=== PATIENT | female | born 1985 | race Two or more races ===

== ENCOUNTER → 2017-08-17 | Outpatient (CLI) | payer OTHER | END | disposition home or self-care (01) | LOC: RX STUDY 10:51 | DX: R10.2 Pelvic and perineal pain (principal); N80.2 Endometriosis of fallopian tube ==

== ENCOUNTER 2021-08-19 09:07 | Outpatient (CLI) | payer OTHER | END 2021-08-19 09:13 | disposition home or self-care (01) | LOC: RAD 09:07 | PROVIDERS: ATTEND Obstetrics & Gynecology Gynecology | DX: N91.2 Amenorrhea, unspecified (principal) ==

== ENCOUNTER 2022-07-19 09:14 | Outpatient (CLI) | payer OTHER | END 2022-07-19 11:15 | disposition home or self-care (01) | LOC: PRENATAL 09:14 | PROVIDERS: ATTEND Obstetrics & Gynecology Maternal & Fetal Medicine | DX: O35.9XX0 Maternal care for (suspected) fetal abnormality and damage, unspecified, not applicable or unspecified (principal); O34.219 Maternal care for unspecified type scar from previous cesarean delivery; O35.3XX0 Maternal care for (suspected) damage to fetus from viral disease in mother, not applicable or unspecified; O09.529 Supervision of elderly multigravida, unspecified trimester; Z3A.20 20 weeks gestation of pregnancy ==

== ENCOUNTER 2022-10-13 09:16 | Outpatient (CLI) | payer OTHER | END 2022-10-13 10:45 | disposition home or self-care (01) | LOC: PRENATAL 09:16 | PROVIDERS: ATTEND Obstetrics & Gynecology Maternal & Fetal Medicine | DX: O26.849 Uterine size-date discrepancy, unspecified trimester (principal); O36.8199 Decreased fetal movements, unspecified trimester, other fetus; O09.529 Supervision of elderly multigravida, unspecified trimester; O34.219 Maternal care for unspecified type scar from previous cesarean delivery; O28.1 Abnormal biochemical finding on antenatal screening of mother; Z3A.32 32 weeks gestation of pregnancy ==

== ENCOUNTER 2025-01-02 10:30 | Inpatient (IN) | payer OTHER ==
[~2025-01-02] VITALS: Ht 30.5 cm; Wt 57.6 kg
[2025-01-08] MEDS ORDERED: LIDOCAINE HCL 1%/EPINEPHRINE 20ML VIAL IJ ONE (08:15)
[2025-01-08] MEDS ORDERED: BUPIVACAINE HCL/MPF 0.5% 30ML VIAL ONE (08:15)
[2025-01-08] MEDS ORDERED: VISTASEAL DUAL APPICATOR 1 EACH APPL TOP ONE (08:35)
[2025-01-08] MEDS ORDERED: THROMBIN,HU/FIBRINOGEN/CALCIUM 10 ML SYRINGE TOP ONE (08:35)
[2025-01-08] MEDS ORDERED: CHLORHEXIDINE GLUCONATE 120 ML BOTTLE TOP ONE (09:45)
[2025-01-08] MEDS ORDERED: METRONIDAZOLE/SODIUM CHLORIDE 500 MG/100 ML PIGGYBACK IV SCH (09:45)
[2025-01-08] MEDS ORDERED: POVIDONE-IODINE 118 ML BOTT TOP ONE (09:45)
[2025-01-08] MEDS ORDERED: CEFTRIAXONE SODIUM 2,000 MG VIAL IV SCH (09:45)
[2025-01-08] MEDS ORDERED: IOVERSOL 320 MG/ML - 50 ML VIAL IV ONE (11:21)
[2025-01-08] MEDS ORDERED: SUGAMMADEX SODIUM 200 MG/2 ML VIAL IV ONE (13:12)
[2025-01-08] MEDS ORDERED: RINGERS SOLUTION,LACTATED 1,000 ML IV SCH (14:15)
[2025-01-08] MEDS ORDERED: OxyCODONE HCL 5 MG TABLET (ROXICODONE) PO PRN (14:15)
[2025-01-08] MEDS ORDERED: MORPHINE SULFATE 4 MG/ML CARTRIDGE IV PRN (14:15)
[2025-01-08] MEDS ORDERED: ONDANSETRON HCL 2 MG/ML VIAL IV PRN (14:15)
[2025-01-08 15:42] LABS: BASO % 0.1 % (0.1-1.2); EOS # 0.00 (0.04-0.54); EOS % 0.0 % (0.7-7.0); LYMPH # 0.99 (1.18-3.74); LYMPH % 5.0 % (19.3-53.1); MEAN PLATELET VOLUME 11.80 fl (9.4-12.4); MONO # 1.36 (0.24-0.82); MONO % 6.8 % (4.7-12.5); NEUT # 17.39 (1.56-6.13); NEUT % 87.6 % (34.0-71.1); RED CELL DISTRIBUTION WIDTH 13.1 % (11.6-14.4)
[2025-01-08] MEDS ORDERED: METOCLOPRAMIDE HCL 5 MG/ML VIAL ONE (16:39)
[2025-01-08] MEDS ORDERED: HYOSCYAMINE SULFATE 0.125 MG TAB.SUBL ONE (16:39)
[2025-01-08] MEDS ORDERED: GABAPENTIN 300 MG CAPSULE PO ONE (16:40)
[2025-01-08] MEDS ORDERED: SIMETHICONE 125 MG CAPSULE PO ONE (16:40)
[2025-01-08] MEDS ORDERED: GABAPENTIN 300 MG CAPSULE PO SCH (17:00)
[2025-01-08] MEDS ORDERED: HYOSCYAMINE SULFATE 0.125 MG TAB.SUBL SL SCH (17:00)
[2025-01-08] MEDS ORDERED: SIMETHICONE 125 MG CAPSULE PO SCH (17:00)
[2025-01-08] MEDS ORDERED: METOCLOPRAMIDE HCL 5 MG/ML VIAL IV SCH (17:00)
[2025-01-08 17:21] VITALS: BP 118/75
[2025-01-08] MEDS ORDERED: ACETAMINOPHEN 500 MG GEL..CAP PO SCH (20:00)
[2025-01-08 20:46] VITALS: BP 123/74
[2025-01-08] MEDS ORDERED: FAMOTIDINE/PF 20 MG/2 ML VIAL IV PUSH SCH (21:00)
[2025-01-08] MEDS ORDERED: CELECOXIB 200 MG CAPSULE PO SCH (21:00)
[2025-01-08 21:17] LABS: BASO % 0.2 % (0.1-1.2); EOS # 0.00 (0.04-0.54); EOS % 0.0 % (0.7-7.0); LYMPH # 0.39 (1.18-3.74); LYMPH % 2.1 % (19.3-53.1); MEAN PLATELET VOLUME 11.80 fl (9.4-12.4); MONO # 0.80 (0.24-0.82); MONO % 4.3 % (4.7-12.5); NEUT # 17.41 (1.56-6.13); NEUT % 93.0 % (34.0-71.1); RED CELL DISTRIBUTION WIDTH 12.9 % (11.6-14.4)
[2025-01-09 00:42] VITALS: BP 100/62
[2025-01-09 06:19] LABS: BASO % 0.1 % (0.1-1.2); EOS # 0.00 (0.04-0.54); EOS % 0.0 % (0.7-7.0); LYMPH # 1.12 (1.18-3.74); LYMPH % 7.0 % (19.3-53.1); MEAN PLATELET VOLUME 12.20 fl (9.4-12.4); MONO # 1.50 (0.24-0.82); MONO % 9.4 % (4.7-12.5); NEUT # 13.23 (1.56-6.13); NEUT % 83.2 % (34.0-71.1); RED CELL DISTRIBUTION WIDTH 13.1 % (11.6-14.4)
[2025-01-09 06:44] LABS: BUN CREA RATIO 8.0 (7.0-25.0); CREATININE SERUM 0.59 mg/dL (0.55-1.02); GFR 114.07; GLUCOSE FASTING 94.0 mg/dL (65-100); OSMOLALITY SERUM 280.0 MOSM/KG (275-295)
[2025-01-09 08:53] VITALS: BP 115/78
[2025-01-09] MEDS ORDERED: LACTOBACILLUS ACIDOPHILUS 1 CAP CAP PO SCH (09:00)
[2025-01-09] MEDS ORDERED: ENOXAPARIN SODIUM 40 MG/0.4 ML SYRINGE SUBCUTANEO SCH (17:00)
[2025-01-09 18:43] VITALS: BP 118/81; O2SAT 99
[2025-01-10 00:42] VITALS: BP 111/71; O2SAT 98
[2025-01-10 04:30] VITALS: BP 107/69
[2025-01-10 06:25] LABS: BASO % 0.3 % (0.1-1.2); EOS # 0.21 (0.04-0.54); EOS % 1.9 % (0.7-7.0); LYMPH # 1.53 (1.18-3.74); LYMPH % 14.0 % (19.3-53.1); MEAN PLATELET VOLUME 11.40 fl (9.4-12.4); MONO # 0.98 (0.24-0.82); MONO % 9.0 % (4.7-12.5); NEUT # 8.14 (1.56-6.13); NEUT % 74.4 % (34.0-71.1); RED CELL DISTRIBUTION WIDTH 13.2 % (11.6-14.4)
[2025-01-10 07:19] LABS: BUN CREA RATIO 13.0 (7.0-25.0); CREATININE SERUM 0.56 mg/dL (0.55-1.02); GFR 121.15; GLUCOSE FASTING 82.0 mg/dL (65-100); OSMOLALITY SERUM 284.0 MOSM/KG (275-295)
[2025-01-10 08:00] VITALS: BP 112/69
[2025-01-10] MEDS ORDERED: AMINOCAPROIC ACID 250 MG/ML VIAL IV STA (08:13)
[2025-01-10] MEDS ORDERED: ENOXAPARIN SODIUM 40 MG/0.4 ML SYRINGE SUBCUTANEO SCH (09:00)
[2025-01-10] MEDS ORDERED: AMINOCAPROIC ACID 250 MG/ML VIAL IV SCH (10:00)
[2025-01-10] MEDS ORDERED: POTASSIUM PHOS,M-BASIC-D-BASIC 3 MM/ML VIAL IV ONE (12:00)
[2025-01-10] MEDS ORDERED: SOD FERRIC GLUC COMPLX/SUCROSE 62.5 MG in 0.9 % SODIUM CHLORIDE 50 ML IV NR (14:00)
[2025-01-10] MEDS ORDERED: Cyanocobalamin/Mecobalamin 1 TAB.SL SL NR (14:00)
[2025-01-10 18:11] VITALS: BP 101/68
[2025-01-11] VITALS: BP 110/75; O2SAT 98
[2025-01-11 05:34] VITALS: BP 108/72
[2025-01-11 08:00] VITALS: BP 111/76
[2025-01-11 08:06] LABS: BASO % 0.4 % (0.1-1.2); EOS # 0.31 (0.04-0.54); EOS % 3.8 % (0.7-7.0); LYMPH # 1.43 (1.18-3.74); LYMPH % 17.6 % (19.3-53.1); MEAN PLATELET VOLUME 11.70 fl (9.4-12.4); MONO # 0.68 (0.24-0.82); MONO % 8.4 % (4.7-12.5); NEUT # 5.65 (1.56-6.13); NEUT % 69.4 % (34.0-71.1); RED CELL DISTRIBUTION WIDTH 13.3 % (11.6-14.4)
[2025-01-11] MEDS ORDERED: Cyanocobalamin/Mecobalamin 1 TAB.SL SL SCH (09:00)
[2025-01-11] MEDS ORDERED: SOD FERRIC GLUC COMPLX/SUCROSE 62.5 MG in 0.9 % SODIUM CHLORIDE 50 ML IV SCH (09:00)
== END 2025-01-11 12:35 | disposition home or self-care (01) | DRG 742 ==
LOC: O/R 01-08 06:00 → OB/GYN 01-08 06:00 → O/R 01-08 09:31 → OB/GYN 01-08 10:30 → SURH 01-08 10:30 → OB/GYN 01-08 15:55
PROVIDERS: Internal Medicine Geriatric Medicine; Obstetrics & Gynecology Gynecology; Surgery; Urology; ADMIT Student in an Organized Health Care Education/Training Program; ATTEND Student in an Organized Health Care Education/Training Program
PROC: 0DTP4ZZ Resection of Rectum, Percutaneous Endoscopic Approach (ICD-10-PCS; 2025-01-08)
PROC: 0TN74ZZ Release Left Ureter, Percutaneous Endoscopic Approach (ICD-10-PCS; 2025-01-08)
PROC: 0TN64ZZ Release Right Ureter, Percutaneous Endoscopic Approach (ICD-10-PCS; 2025-01-08)
PROC: 0DNW4ZZ Release Peritoneum, Percutaneous Endoscopic Approach (ICD-10-PCS; 2025-01-08)
PROC: 0DTJ4ZZ Resection of Appendix, Percutaneous Endoscopic Approach (ICD-10-PCS; 2025-01-08)
PROC: 0DJD8ZZ Inspection of Lower Intestinal Tract, Via Natural or Artificial Opening Endoscopic (ICD-10-PCS; 2025-01-08)
PROC: 0T778DZ Dilation of Left Ureter with Intraluminal Device, Via Natural or Artificial Opening Endoscopic (ICD-10-PCS; 2025-01-08)
PROC: 0TQ74ZZ Repair Left Ureter, Percutaneous Endoscopic Approach (ICD-10-PCS; 2025-01-08)
PROC: 0UT24ZZ Resection of Bilateral Ovaries, Percutaneous Endoscopic Approach (ICD-10-PCS; principal; 2025-01-08 07:00)
PROC: 0UT94ZZ Resection of Uterus, Percutaneous Endoscopic Approach (ICD-10-PCS; 2025-01-08 07:00)
PROC: 0TNB4ZZ Release Bladder, Percutaneous Endoscopic Approach (ICD-10-PCS; 2025-01-08 07:00)
DX: N80.103 Endometriosis of bilateral ovaries, unspecified depth (principal); N99.71 Accidental puncture and laceration of a genitourinary system organ or structure during a genitourinary system procedure; N80.519 Endometriosis of the rectum, unspecified depth; D27.1 Benign neoplasm of left ovary

== ENCOUNTER 2025-01-31 17:16 | Emergency (ER) | payer OTHER ==
[~2025-01-31] VITALS: Ht 154.9 cm; Wt 53.5 kg
--- NOTE | 2025-01-31 17:29 | NUR ---
PACIENTE ALERTA Y ORIENTADA X3 REFIERE TENER ORDEN MEDICA DE DR. HOOK POR SANGRADO VAGINAL. SE HIEN S/V Y SE PASA CON DR. HOOK PARA MEJOR EXAMINACION.
[2025-01-31] MEDS ORDERED: THROMBIN,HU/FIBRINOGEN/CALCIUM 10 ML SYRINGE TOP ONE (17:48)
[2025-01-31] MEDS ORDERED: ONDANSETRON HCL 4 MG in 0.9 % SODIUM CHLORIDE 50 ML IV PRN (18:30)
[2025-01-31] MEDS ORDERED: ACETAMINOPHEN 325 MG TABLET PO PRN (18:30)
[2025-01-31] MEDS ORDERED: KETOROLAC TROMETHAMINE 30 MG VIAL IV PRN (18:30)
[2025-01-31] MEDS ORDERED: ACETAMINOPHEN 500 MG GEL..CAP PO ONE (18:38)
[2025-01-31] MEDS ORDERED: ONDANSETRON HCL 2 MG/ML VIAL ONE (18:38)
[2025-01-31] MEDS ORDERED: KETOROLAC TROMETHAMINE 30 MG VIAL ONE (18:38)
[2025-01-31] MEDS ORDERED: TRANEXAMIC ACID 100MG/1ML (1000MG) AMPUL IV ONE (19:15)
--- NOTE | 2025-01-31 19:15 | NUR ---
PTE EVALUADO POR TOSTE, PRESENTADO MANCHADO VAGINAL, SE REALIZA HIEN DE MUESTRAS DE PATO BAJO MEDIDAS ASEPTICAS Y SE ADMINISTRA MEDICACION JUDY ORDEN MEDICA. CLIENTE ES ORIENTADO SOBRE MEDICACION Y PROCESO DE RE-EVALUACION MEDICA.
[2025-01-31 19:22] LABS: BASO % 0.5 % (0.1-1.2); EOS # 0.14 (0.04-0.54); EOS % 2.5 % (0.7-7.0); LYMPH # 1.90 (1.18-3.74); LYMPH % 34.4 % (19.3-53.1); MEAN PLATELET VOLUME 12.00 fl (9.4-12.4); MONO # 0.59 (0.24-0.82); MONO % 10.7 % (4.7-12.5); NEUT # 2.86 (1.56-6.13); NEUT % 51.7 % (34.0-71.1); RED CELL DISTRIBUTION WIDTH 13.1 % (11.6-14.4)
[2025-01-31] MEDS ORDERED: SIMETHICONE 125 MG CAPSULE PO PRN (19:30)
[2025-01-31 19:43] LABS: ALT/SGPT 19.0 U/L (12-78); AST/SGOT 17.0 U/L (15-37); BILIRUBIN TOTAL 0.34 mg/dL (0.3-1.2); BUN CREA RATIO 15.0 (7.0-25.0); CREATININE SERUM 0.86 mg/dL (0.55-1.02); GFR 73.85; GLOBULINA 4.0 G/DL (2.4-3.5); GLUCOSE FASTING 87.0 mg/dL (65-100); OSMOLALITY SERUM 283.0 MOSM/KG (275-295)
[2025-01-31] MEDS ORDERED: RINGERS SOLUTION,LACTATED 1,000 ML IV SCH (20:30)
[2025-02-01 08:30] VITALS: BP 115/79; O2SAT 99
[2025-02-01 10:20] VITALS: BP 113/76
[2025-02-01] MEDS ORDERED: ACETAMINOPHEN 500 MG GEL..CAP PO PRN (11:00)
[2025-02-12] MEDS ORDERED: METRONIDAZOLE/SODIUM CHLORIDE 500 MG/100 ML PIGGYBACK IV ONE (23:17)
[2025-02-12] MEDS ORDERED: SUGAMMADEX SODIUM 200 MG/2 ML VIAL IV ONE (23:29)
== END 2025-02-01 14:16 | disposition home or self-care (01) ==
LOC: ER 17:16 → EDSTATUS 17:16 → CIR.AMB 17:57 → ER 17:57 → OB/GYN 02-01 06:57 → ER 02-01 06:57 → OB/GYN 02-01 14:16 → EDSTATUS 03-11 17:16
PROVIDERS: General Practice
DX: N93.8 Other specified abnormal uterine and vaginal bleeding (principal); N80.8 Other endometriosis; N94.6 Dysmenorrhea, unspecified

== ENCOUNTER 2025-02-12 21:29 | Inpatient (IN) | payer OTHER ==
[~2025-02-12] VITALS: Ht 154.9 cm; Wt 53.5 kg
--- NOTE | 2025-02-12 21:33 | NUR ---
PTE ALERTA Y ORIENTADA ACOMPANDA DEL DR. HOOK CON SANGRADO VAGINAL.
[2025-02-12 22:01] LABS: BASO % 0.4 % (0.1-1.2); EOS # 0.20 (0.04-0.54); EOS % 3.0 % (0.7-7.0); LYMPH # 3.29 (1.18-3.74); LYMPH % 48.9 % (19.3-53.1); MEAN PLATELET VOLUME 11.50 fl (9.4-12.4); MONO # 0.72 (0.24-0.82); MONO % 10.7 % (4.7-12.5); NEUT # 2.49 (1.56-6.13); NEUT % 37.0 % (34.0-71.1); RED CELL DISTRIBUTION WIDTH 12.7 % (11.6-14.4)
[2025-02-12 22:24] LABS: INR 1.06
[2025-02-12 22:29] LABS: ALT/SGPT 16.0 U/L (12-78); AST/SGOT 13.0 U/L (15-37); BILIRUBIN TOTAL 0.28 mg/dL (0.3-1.2); BUN CREA RATIO 21.0 (7.0-25.0); CREATININE SERUM 0.68 mg/dL (0.55-1.02); GFR 96.83; GLOBULINA 3.4 G/DL (2.4-3.5); GLUCOSE FASTING 99.0 mg/dL (65-100); OSMOLALITY SERUM 285.0 MOSM/KG (275-295)
[2025-02-12] MEDS ORDERED: METRONIDAZOLE/SODIUM CHLORIDE 500 MG/100 ML PIGGYBACK IV ONE (23:30)
[2025-02-12] MEDS ORDERED: ONDANSETRON HCL 2 MG/ML VIAL IV SCH (23:44)
[2025-02-12] MEDS ORDERED: TRANEXAMIC ACID 100MG/1ML (1000MG) AMPUL IV ONE (23:45)
[2025-02-12] MEDS ORDERED: KETOROLAC TROMETHAMINE 30 MG VIAL IV SCH (23:48)
[2025-02-13] MEDS ORDERED: GABAPENTIN 100 MG CAPSULE PO SCH (01:00)
[2025-02-13] MEDS ORDERED: RINGERS SOLUTION,LACTATED 1,000 ML IV SCH (01:00)
[2025-02-13 01:38] VITALS: BP 110/72
[2025-02-13 01:47] VITALS: O2SAT 100
[2025-02-13 01:49] VITALS: BP 110/72
[2025-02-13] MEDS ORDERED: ACETAMINOPHEN 325 MG TABLET PO SCH (02:00)
[2025-02-13 07:24] LABS: BASO % 0.4 % (0.1-1.2); EOS # 0.07 (0.04-0.54); EOS % 1.0 % (0.7-7.0); LYMPH # 1.69 (1.18-3.74); LYMPH % 23.4 % (19.3-53.1); MEAN PLATELET VOLUME 12.40 fl (9.4-12.4); MONO # 0.67 (0.24-0.82); MONO % 9.3 % (4.7-12.5); NEUT # 4.74 (1.56-6.13); NEUT % 65.8 % (34.0-71.1); RED CELL DISTRIBUTION WIDTH 12.8 % (11.6-14.4)
[2025-02-13 07:54] LABS: BUN CREA RATIO 14.0 (7.0-25.0); CREATININE SERUM 0.59 mg/dL (0.55-1.02); GFR 114.07; GLUCOSE FASTING 88.0 mg/dL (65-100); OSMOLALITY SERUM 286.0 MOSM/KG (275-295)
[2025-02-13 08:00] VITALS: BP 113/75
[2025-02-13 12:39] LABS: BASO % 0.3 % (0.1-1.2); EOS # 0.08 (0.04-0.54); EOS % 1.2 % (0.7-7.0); LYMPH # 1.68 (1.18-3.74); LYMPH % 25.3 % (19.3-53.1); MEAN PLATELET VOLUME 12.00 fl (9.4-12.4); MONO # 0.58 (0.24-0.82); MONO % 8.7 % (4.7-12.5); NEUT # 4.28 (1.56-6.13); NEUT % 64.3 % (34.0-71.1); RED CELL DISTRIBUTION WIDTH 12.7 % (11.6-14.4)
[2025-02-13 14:00] VITALS: BP 112/73
== END 2025-02-13 16:37 | disposition home or self-care (01) | DRG 761 ==
LOC: ER 21:29 → O/R 21:52 → OB/GYN 21:52
PROVIDERS: Student in an Organized Health Care Education/Training Program; ADMIT Obstetrics & Gynecology Gynecology; ATTEND Obstetrics & Gynecology Gynecology
PROC: 0UQG7ZZ Repair Vagina, Via Natural or Artificial Opening (ICD-10-PCS; principal; 2025-02-12 23:00)
DX: S31.41XA Laceration without foreign body of vagina and vulva, initial encounter (principal); N93.9 Abnormal uterine and vaginal bleeding, unspecified